=== PATIENT | female | born 1990 | race American Indian/Alaskan Native ===

== ENCOUNTER 2016-08-12 17:51 | Emergency (ER) | payer MEDICAID ==
[2016-08-12 17:57] VITALS: TEMP 99.2; O2SAT 100
[2016-08-12 17:59] VITALS: BMI 31.0
--- NOTE | 2016-08-12 18:10 | ED PDOC ---
Arrival/HPI - General Chief Complaint: Seizure Time Seen by Provider: 08/12/16 17:59 Historian: Patient, EMS - History of Present Illness Narrative History of Present Illness (Text): 08/12/16 17:59 A 26 year old female, whose past medical history includes seizures (on Dilantin) , is brought into the emergency department by EMS for seizure like activities. EMS reports 6 episodes. They states after every episodes the patient returned to baseline. When the patient was being transported into the hospital stretcher she had another episode, which lasted for 30 seconds and immediately after returned to baseline. Patient denies any urinary incontinence, tongue biting, or any other complaints at this time. Time/Duration: Prior to Arrival Symptom Onset: Sudden Symptom Course: Other Quality: Other Activities at Onset: Rest Context: Home Past Medical History - Provider Review Nursing Documentation Reviewed: Yes - Infectious Disease Hx of Infectious Diseases: None - Cardiac Hx Cardiac Disorders: No - Pulmonary Hx Respiratory Disorders: Yes Hx Asthma: Yes - Neurological Hx Neurological Disorder: Yes Hx Seizures: Yes - HEENT Hx HEENT Disorder: No - Renal Hx Renal Disorder: No - Endocrine/Metabolic Hx Endocrine Disorders: No - Hematological/Oncological Hx Blood Disorders: No - Integumentary Hx Dermatological Disorder: No - Musculoskeletal/Rheumatological Hx Musculoskeletal Disorders: No - Gastrointestinal Hx Gastrointestinal Disorders: No - Genitourinary/Gynecological Hx Genitourinary Disorders: No - Psychiatric Hx Psychophysiologic Disorder: No Hx Substance Use: No - Anesthesia Hx Anesthesia: No Family/Social History - Physician Review Nursing Documentation Reviewed: Yes Family/Social History: Unknown Family HX Smoking Status: Unknown If Ever Smoked Hx Alcohol Use: No Hx Substance Use: No Allergies/Home Meds Allergies/Adverse Reactions: Allergies banana Allergy (Verified 08/12/16 17:59) ANAPHYLAXIS eggplant Allergy (Uncoded 08/12/16 17:59) ANAPHYLAXIS Home Medications: Home Meds Medication Instructions Recorded Confirmed Albuterol HFA [Ventolin HFA 90 1 puff IH PRN PRN 08/12/16 08/12/16 mcg/actuation (8 g)] Physical Exam - Physical Exam Narrative Physical Exam (Text): - Review of Systems Constitutional: Normal. absent: Fatigue, Weight Change, Fevers Eyes: Normal ENT: Normal. absent: tongue biting. Respiratory: Normal absent: SOB, Cough, Sputum Cardiovascular: Normal absent: Chest pain, Palpitations, Syncope Gastrointestinal: Normal absent: Abdominal pain, Diarrhea, Nausea, Vomiting Genitourinary: Normal. absent: Dysuria, Frequency, Hematuria, incontinence Musculoskeletal: Normal. absent: Arthralgias, Back Pain, Neck Pain Skin: Normal Neurological: Seizure like activity. absent: Focal Weakness Endocrine: Normal Hemo/Lymphatic: Normal Psychiatric: Normal - Physical exam Patient appears age appropriate, speaking full sentences without difficulty - Systems Exam Head: Present: Atraumatic, Normocephalic Pupils: Present: PERRL Extraocular Muscles: Present: EOMI Conjunctiva: Present: Normal Mouth: Present: Moist Mucous Membranes Neck: Present: Normal Range of Motion. No: MIDLINE TENDERNESS, Paraspinal Tenderness Respiratory/Chest: Present: Clear to Auscultation, Good Air Exchange. No: Respiratory Distress, Accessory Muscle Use, Tachypneic Cardiovascular: Present: Regular Rate and Rhythm, Normal S1, S2, Peripheral Pulses Present. No: Murmurs Abdomen: Present: Normal Bowel Sounds, No: Tenderness, Peritoneal Signs, Rebound, Guarding, Distention Back: Present: Normal Inspection. No: Midline Tenderness, Paraspinal Tenderness Upper Extremity: Present: Normal Inspection. No: Cyanosis, Edema Lower Extremity: Present: Normal Inspection. No: Edema Neurological: Present: GCS=15, Speech Normal, cranial nerves II through XII fully intact with no cerebellar abnormality, neuro-sensory fully intact. No focal neurological deficits. Skin: Present: Warm, Dry, Normal Color. No: Rashes Lymphatic: Present: OX3, NI, NC Psychiatric: Present: Alert, Oriented x 3, Normal Insight, Normal Concentration Vital Signs Reviewed: Yes Vital Signs Temp Pulse Resp BP Pulse Ox 08/12/16 17:52 99.2 F 81 18 114/75 100 Temperature: Afebrile Blood Pressure: Normal Pulse: Regular Respiratory Rate: Normal Appearance: Positive for: Well-Appearing, Non-Toxic, Comfortable Pain Distress: None Mental Status: Positive for: Alert and Oriented X 3 Finger Stick Blood Glucose: 86 Medical Decision Making ED Course and Treatment: 08/12/16 17:59 Impression: A 26 year old female after seizure like activities. Patient returns to baseline immediately after. There are no neurological deficits. Patient is currently awake and alert. She is in no distress and on her cell phone. No urinary incontinence or tongue biting. Pt states she takes dilantin, but ran out Differential Diagnosis include but are not limited to: seizure vs pseudoseizure Plan: -- EKG -- Labs -- Urine Preg -- Ativan -- Reassess and disposition Progress Notes: EKG: Ordered, reviewed, and independently interpreted the EKG. Rate : 80 BPM Rhythm : NSR Interpretation : No ST-segment elevations, normal intervals. Interpreted by me. 08/12/16 19:45 dilantin level low dilantin ordered pt in no distress denies complaints no focal neurological deficits on reeval will be given dilantin Rx, and states she will f/u with outpatient neurologist pt states she feels comfortable being dc home Pt states she understands to return to the ER right away for new or worsening symptoms or for inability to f/u with PMD or specialist as instructed. Patient states that she fully agrees with and understands discharge instructions. States that she agrees with the plan and disposition. Verbalized and repeated discharge instructions and plan. I have given the patient opportunity to ask any additional questions. - Lab Interpretations Lab Results: 08/12/16 18:26 08/12/16 18:40 Lab Results 08/12/16 18:40: Sodium 142, Potassium 3.5 L, Chloride 107, Carbon Dioxide 27, Anion Gap 12, BUN 11, Creatinine 0.8, Est GFR ( Amer) > 60, Est GFR (Non- Af Amer) > 60, Random Glucose 83, Calcium 8.9, Total Bilirubin 0.4, AST 27, ALT 40, Alkaline Phosphatase 58, Total Protein 7.4, Albumin 4.0, Globulin 3.4, Albumin/Globulin Ratio 1.2 08/12/16 18:40: Phenytoin < 3 L 08/12/16 18:26: PT 11.4, INR 1.06, APTT 27.1 08/12/16 18:26: WBC 6.1, RBC 4.61, Hgb 14.1, Hct 41.1, MCV 89.2, MCH 30.6, MCHC 34.3, RDW 14.4, Plt Count 215, MPV 10.0, Gran % 50.9, Lymph % (Auto) 42.0 H, Kimble % (Auto) 5.8, Eos % (Auto) 1.0 L, Baso % (Auto) 0.3, Gran # 3.08, Lymph # 2.5, Kimble # 0.4, Eos # 0.1, Baso # 0.02 08/12/16 17:57: POC Glucose (mg/dL) 86 I have reviewed the lab results: Yes - Medication Orders Current Medication Orders: Phenytoin 500 mg/ Sodium (Chloride) 100 mls @ 120 mls/hr IVPB STAT STA Stop: 08/12/16 20:28 Phenytoin 500 mg/ Sodium (Chloride) 100 mls @ 120 mls/hr IVPB ONCE ONE Stop: 08/12/16 21:19 Discontinued Medications Acetaminophen (Tylenol 325mg Tab) 975 mg PO STAT STA Stop: 08/12/16 19:10 Last Admin: 08/12/16 19:13 Dose: 975 mg Lorazepam (Ativan) 2 mg IVP ONCE ONE Stop: 08/12/16 18:02 Last Admin: 08/12/16 18:01 Dose: 2 mg Potassium Chloride (K-Dur 20 Meq Er Tab) 20 meq PO STAT STA Stop: 08/12/16 19:20 Last Admin: 08/12/16 19:37 Dose: 20 meq - Scribe Statement The provider has reviewed the documentation as recorded by the Denia Ohara Provider Scribe Attestation: All medical record entries made by the Denia were at my direction and personally dictated by me. I have reviewed the chart and agree that the record accurately reflects my personal performance of the history, physical exam, medical decision making, and the department course for this patient. I have also personally directed, reviewed, and agree with the discharge instructions and disposition. Disposition/Present on Arrival - Present on Arrival Any Indicators Present on Arrival: No History of DVT/PE: No History of Uncontrolled Diabetes: No Urinary Catheter: No History of Decub. Ulcer: No History Surgical Site Infection Following: None - Disposition Have Diagnosis and Disposition been Completed?: Yes Diagnosis: Seizure Disposition: HOME/ ROUTINE Disposition Time: 19:47 Patient Plan: Discharge Condition: GOOD Discharge Instructions (ExitCare): Epilepsy (ED), Recurrent Seizures in Adults (ED) Additional Instructions: PLEASE RETURN TO THE EMERGENCY DEPARTMENT FOR NEW OR WORSENING SYMPTOMS. RETURN RIGHT AWAY IF YOU CANNOT FOLLOW UP WITH YOUR PRIMARY CARE DOCTOR, CLINIC, OR SPECIALIST IN 1-2 DAYS. Prescriptions: Phenytoin, Extended [Dilantin] 100 mg PO Q8H #30 Referrals: Jer Lane MD [Staff Provider] - Follow up with primary Jeffry Lane MD [Staff Provider] - Follow up with primary
[2016-08-12 18:41] LABS: BASO # 0.02 K/mm3 (0.0-2.0); BASO % 0.3 % (0.0-3.0); EOS # 0.1 (0.0-0.7); GRAN # 3.08 (1.4-6.5); GRAN % 50.9 % (50.0-68.0); HEMOGLOBIN 14.1 gm/dL (12.0-16.0); LYMPH # 2.5 (1.2-3.4); MEAN CELL VOLUME 89.2 fL (80.0-105.0); MEAN CORPUSCULAR HEMOGLOBIN 30.6 pg (25.0-35.0); MEAN CORPUSCULAR HGB CONC 34.3 g/dl (31.0-37.0); MONO # 0.4 (0.1-0.6); MONO % 5.8 % (1.0-6.0); PLATELET COUNT 215 10^3/uL (120.0-450.0); RBC 4.61 10^6/uL (3.5-6.1); RED CELL DISTRIBUTION WIDTH 14.4 % (11.5-14.5); WHITE BLOOD COUNT 6.1 10^3/ul (4.5-11.0)
[2016-08-12 18:49] LABS: INR 1.06 (0.93-1.08); PARTIAL THROMBOPLASTIN TIME 27.1 Seconds (23.7-30.8); PROTHROMBIN TIME 11.4 Seconds (9.9-11.8)
[2016-08-12 18:59] LABS: ALB/GLOB RATIO 1.2 (1.1-1.8); ALT/SGPT 40 U/L (7-56); AST/SGOT 27 U/L (15-39); BLOOD UREA NITROGEN 11 mg/dL (7-21); CALCIUM 8.9 mg/dL (8.4-10.5); GFR AFRICAN-AMERICAN > 60; GFR NON-AFRICAN AMERICAN > 60
[2016-08-12] MEDS ORDERED: Potassium Chloride 20 mEq ER Tab PO STA (19:19)
[2016-08-12] MEDS ORDERED: PHENYTOIN IV ONE (19:34)
[2016-08-12] MEDS ORDERED: SODIUM CHLORIDE 0.9% IV ONE (19:34)
[2016-08-12] MEDS ORDERED: Phenytoin 500 MG in Sodium Chloride 0.9% 100 ML IVPB STA (19:39)
[2016-08-12] MEDS ORDERED: Phenytoin 500 MG in Sodium Chloride 0.9% 100 ML IVPB ONE (20:30)
[2016-08-12 22:31] VITALS: BP 110/70; PULSE 75; RESP 20
--- NOTE | 2016-08-13 10:43 | CARD ---
APPROVED REPORT EKG Measurement Heart [id number] <Conclusion> Sinus rhythm [facility]
== END 2016-08-12 22:34 | disposition home or self-care (01) ==
LOC: ED 17:51 → MERGE 17:51 → ED 22:34
DX: R56.9 Unspecified convulsions (principal)
CPT/HCPCS: 80053; 80185; 82948; 85025; 85610; 85730; 93005; 96365; 96366; 96375; 99285; J1165; J2060

== ENCOUNTER 2016-09-09 12:12 | Emergency (ER) | payer MEDICAID ==
[2016-09-09 12:12] VITALS: BMI 31.0
[2016-09-09 12:16] VITALS: TEMP 98.6; O2SAT 99
--- NOTE | 2016-09-09 12:54 | ED PDOC ---
Arrival/HPI - General Chief Complaint: Abdominal Pain Time Seen by Provider: 09/09/16 12:28 Historian: Patient - History of Present Illness Narrative History of Present Illness (Text): 09/09/16 12:34 26 year old female patient, , presents to the emergency department with suprapubic abdominal pain. The patient states that her last known menstrual period was August 11, 2016. Patient notes that she took a test days ago and it was positive. The patient denies vaginal bleeding, dysuria, chills, fever, nausea, vomiting, diarrhea, or any other complaint. Time/Duration: Other (few days) Symptom Onset: Sudden Symptom Course: Unchanged Activities at Onset: Rest, Light Context: Home Past Medical History - Provider Review Nursing Documentation Reviewed: Yes - Infectious Disease Hx of Infectious Diseases: None - Cardiac Hx Cardiac Disorders: No - Pulmonary Hx Respiratory Disorders: Yes Hx Asthma: Yes - Neurological Hx Neurological Disorder: Yes Hx Seizures: Yes - HEENT Hx HEENT Disorder: No - Renal Hx Renal Disorder: No - Endocrine/Metabolic Hx Endocrine Disorders: No - Hematological/Oncological Hx Blood Disorders: No - Integumentary Hx Dermatological Disorder: No - Musculoskeletal/Rheumatological Hx Musculoskeletal Disorders: No - Gastrointestinal Hx Gastrointestinal Disorders: No - Genitourinary/Gynecological Hx Genitourinary Disorders: No - Psychiatric Hx Psychophysiologic Disorder: No Hx Substance Use: No - Anesthesia Hx Anesthesia: No Family/Social History - Physician Review Nursing Documentation Reviewed: Yes Family/Social History: No Known Family HX Smoking Status: Never Smoked Hx Alcohol Use: No Hx Substance Use: No Allergies/Home Meds Allergies/Adverse Reactions: Allergies banana Allergy (Verified 09/09/16 12:16) SWELLING eggplant Allergy (Uncoded 09/09/16 12:16) SWELLING Home Medications: Home Meds Medication Instructions Recorded Confirmed Albuterol Sulfate [Albuterol Hfa] 0.09 mg IH Q4H 11/01/14 09/09/16 Albuterol HFA [Ventolin HFA 90 1 puff IH PRN PRN 08/12/16 09/09/16 mcg/actuation (8 g)] Physical Exam - Physical Exam Narrative Physical Exam (Text): - Review of Systems Constitutional: Normal. absent: Fatigue, Weight Change, Fevers Eyes: Normal ENT: Normal Respiratory: Normal absent: SOB, Cough, Sputum Cardiovascular: Normal absent: Chest pain, Palpitations, Syncope Gastrointestinal: (+) suprapubic abdominal pain absent: Diarrhea, Nausea, Vomiting Genitourinary: Normal. absent: Dysuria, Frequency, Hematuria Musculoskeletal: Normal. absent: Arthralgias, Back Pain, Neck Pain Skin: Normal Neurological: Normal absent: Focal Weakness Endocrine: Normal Hemo/Lymphatic: Normal Psychiatric: Normal - Physical exam Patient appears age appropriate, speaking full sentences without difficulty - Systems Exam Head: Present: Atraumatic, Normocephalic Pupils: Present: PERRL Extraocular Muscles: Present: EOMI Conjunctiva: Present: Normal Mouth: Present: Moist Mucous Membranes Neck: Present: Normal Range of Motion. No: MIDLINE TENDERNESS, Paraspinal Tenderness Respiratory/Chest: Present: Clear to Auscultation, Good Air Exchange. No: Respiratory Distress, Accessory Muscle Use, Tachypnic Cardiovascular: Present: Regular Rate and Rhythm, Normal S1, S2, Peripheral Pulses Present. No: Murmurs Abdomen: Present: Abdomen soft, non-tender. No: Tenderness, Peritoneal Signs, Rebound, Guarding, Distention Genitourinary: Present: Normal inspection. No: Dysuria, Frequency, Hematuria Back: Present: Normal Inspection. No: Midline Tenderness, Paraspinal Tenderness Upper Extremity: Present: Normal Inspection. No: Cyanosis, Edema Lower Extremity: Present: Normal Inspection. No: Edema Neurological: Present: GCS=15, Speech Normal, cranial nerves II through XII fully intact with no cerebellar abnormality, neuro-sensory fully intact. No focal neurological deficits. Skin: Present: Warm, Dry, Normal Color. No: Rashes Lymphatic: Present: OX3, NI, NC Psychiatric: Present: Alert, Oriented x 3, Normal Insight, Normal Concentration Vital Signs Temp Pulse Resp BP Pulse Ox 09/09/16 15:05 79 18 107/69 99 09/09/16 12:13 98.6 F 82 16 105/68 99 Temperature: Afebrile Blood Pressure: Normal Pulse: Regular Respiratory Rate: Normal Medical Decision Making ED Course and Treatment: 09/09/16 12:40 Impression: A 26 year old female, , complaining of suprapubic abdominal pain/ Pt took a test, positive result. On exam, abdomen was soft, non-tender. Plan: -- Transvaginal US -- Urinalysis -- Urine Culture -- Labs -- Reassess and disposition Progress Notes: 09/09/16 15:24 POC preg negative b-hcg pos pt denies vaginal bleeding prelim US report shows no adnexal masses and empty uterus pt in no distress instructed to f/u in the ER or her OB for repeat beta and US pt states she understands and agrees with dc plan and dispo Pt states she understands to return to the ER right away for new or worsening symptoms or for inability to f/u with PMD or specialist as instructed. Patient states that she fully agrees with and understands discharge instructions. States that she agrees with the plan and disposition. Verbalized and repeated discharge instructions and plan. I have given the patient opportunity to ask any additional questions. - Lab Interpretations Lab Results: 09/09/16 12:55 09/09/16 12:55 Lab Results 09/09/16 12:55: Beta HCG, Quant 187.52 H 09/09/16 12:55: Sodium 138, Potassium 3.9, Chloride 105, Carbon Dioxide 24, Anion Gap 13, BUN 9, Creatinine 0.7, Est GFR ( Amer) > 60, Est GFR (Non- Af Amer) > 60, Random Glucose 82, Calcium 8.6, Total Bilirubin 0.6, AST 21, ALT 37, Alkaline Phosphatase 46, Total Protein 6.9, Albumin 3.6, Globulin 3.3, Albumin/Globulin Ratio 1.1 09/09/16 12:55: Urine Color Yellow, Urine Appearance Clear, Urine pH 7.0, Ur Specific Justice 1.020, Urine Protein Negative, Urine Glucose (UA) Negative, Urine Ketones Negative, Urine Blood Negative, Urine Nitrate Negative, Urine Bilirubin Negative, Urine Urobilinogen 0.2, Ur Leukocyte Esterase Negative, Urine HCG, Qual Positive 09/09/16 12:55: PT 11.3, INR 1.05, APTT 28.1 09/09/16 12:55: WBC 6.2, RBC 4.17, Hgb 12.5, Hct 36.3, MCV 87.1, MCH 30.0, MCHC 34.4, RDW 14.3, Plt Count 179, MPV 9.7, Gran % 51.1, Lymph % (Auto) 41.3 H, Isabela % (Auto) 6.6 H, Eos % (Auto) 0.8 L, Baso % (Auto) 0.2, Gran # 3.15, Lymph # 2.6, Isabela # 0.4, Eos # 0.1, Baso # 0.01 09/09/16 12:55: Blood Type A POSITIVE, Antibody Screen Negative, BBK History Checked No verified bt I have reviewed the lab results: Yes - RAD Interpretation Radiology Orders: 09/09/16 12:40 OB TRANSVAGINAL [US] Stat - Medication Orders Current Medication Orders: Discontinued Medications Ondansetron HCl (Zofran Odt) Confirm Administered Dose 4 mg .ROUTE .STK-MED ONE Stop: 09/09/16 14:34 Last Admin: 09/09/16 14:35 Dose: Ondansetron HCl (Zofran Odt) 4 mg PO STAT STA Stop: 09/09/16 14:36 Last Admin: 09/09/16 14:38 Dose: 4 mg - Scribe Statement The provider has reviewed the documentation as recorded by the Antibe Lisette Castaneda Provider Scribe Attestation: All medical record entries made by the Scribe were at my direction and personally dictated by me. I have reviewed the chart and agree that the record accurately reflects my personal performance of the history, physical exam, medical decision making, and the department course for this patient. I have also personally directed, reviewed, and agree with the discharge instructions and disposition. Disposition/Present on Arrival - Present on Arrival Any Indicators Present on Arrival: No History of DVT/PE: No History of Uncontrolled Diabetes: No Urinary Catheter: No History of Decub. Ulcer: No History Surgical Site Infection Following: None - Disposition Have Diagnosis and Disposition been Completed?: Yes Diagnosis: Abdominal pain Disposition: HOME/ ROUTINE Disposition Time: 15:29 Patient Plan: Discharge Patient Problems: Current Active Problems Problem Status Onset Abdominal pain Acute Condition: GOOD Discharge Instructions (ExitCare): Abdominal Pain in (ED) Additional Instructions: PLEASE RETURN TO THE EMERGENCY DEPARTMENT FOR NEW OR WORSENING SYMPTOMS. RETURN RIGHT AWAY IF YOU CANNOT FOLLOW UP WITH YOUR PRIMARY CARE DOCTOR, CLINIC, OR SPECIALIST IN 1-2 DAYS. PLEASE FOLLOW UP WITH OB SPECIALIST IN 1-2 DAYS FOR REPEAT BLOOD WORK AND ULTRASOUND Referrals: Horace Mayfield MD [Staff Provider] - Follow up with primary Forms: Sandata (Danish), WORK NOTE
[2016-09-09 13:05] LABS: ADD MANUAL DIFF? NO
[2016-09-09 13:17] LABS: BASO # 0.01 K/mm3 (0.0-2.0); BASO % 0.2 % (0.0-3.0); EOS # 0.1 (0.0-0.7); EOS % 0.8 % (1.5-5.0); GRAN # 3.15 (1.4-6.5); GRAN % 51.1 % (50.0-68.0); HEMATOCRIT 36.3 % (36.0-48.0); LYMPH # 2.6 (1.2-3.4); LYMPH % 41.3 % (22.0-35.0); MEAN CELL VOLUME 87.1 fL (80.0-105.0); MEAN CORPUSCULAR HGB CONC 34.4 g/dl (31.0-37.0); MEAN PLATELET VOLUME 9.7 fl (7.0-11.0); MONO # 0.4 (0.1-0.6); MONO % 6.6 % (1.0-6.0); PLATELET COUNT 179 10^3/uL (120.0-450.0); RED CELL DISTRIBUTION WIDTH 14.3 % (11.5-14.5); WHITE BLOOD COUNT 6.2 10^3/ul (4.5-11.0)
[2016-09-09 13:18] LABS: URINE BILIRUBIN NEGATIVE (NEGATIVE); URINE BLOOD NEGATIVE (NEGATIVE); URINE GLUCOSE (UA) NEGATIVE (NEGATIVE); URINE KETONE NEGATIVE (NEGATIVE); URINE LEUKOCYTE ESTERASE NEGATIVE Leu/uL (NEGATIVE); URINE PROTEIN NEGATIVE mg/dL (<30 mg/dL); URINE UROBILINOGEN 0.2 E.U./dL (<1 E.U./dL)
[2016-09-09 13:26] LABS: URINE APPEARANCE CLEAR (CLEAR); URINE COLOR YELLOW (YELLOW)
[2016-09-09 13:27] LABS: ALB/GLOB RATIO 1.1 (1.1-1.8); ALKALINE PHOSPHATASE 46 U/L (38-133); ALT/SGPT 37 U/L (7-56); AST/SGOT 21 U/L (15-39); BILIRUBIN,TOTAL 0.6 mg/dL (0.2-1.3); BLOOD UREA NITROGEN 9 mg/dL (7-21); CALCIUM 8.6 mg/dL (8.4-10.5); CARBON DIOXIDE 24 mmol/L (21-33); CHLORIDE 105 mmol/L (98-107); GFR AFRICAN-AMERICAN > 60; GLUCOSE,RANDOM 82 mg/dL (70-110); POTASSIUM 3.9 mmol/L (3.6-5.0); SODIUM 138 mmol/L (132-148); TOTAL PROTEIN 6.9 g/dL (5.8-8.3)
[2016-09-09 13:37] LABS: INR 1.05 (0.93-1.08); PARTIAL THROMBOPLASTIN TIME 28.1 Seconds (23.7-30.8)
[2016-09-09 15:05] VITALS: BP 107/69; PULSE 79; RESP 18
--- NOTE | 2016-09-09 15:46 | US ---
HISTORY: preg, abd pain COMPARISON: None available. TECHNIQUE: Transvaginal and transabdominal ultrasound was performed in evaluation of this patient with positive test with last menstrual period reported 08/21/2016. This suggests suggest a potential 4 week 1 day gestation. FINDINGS: UTERUS: Measures 10.7 x 4.8 x 7.0 cm. Normal in size and appearance. The uterus is anteverted without discrete myometrial mass grossly appreciable. ENDOMETRIUM: Measures 12.6 mm in diameter. Trilaminar an appearance appearing grossly nonfocal. No gestational sacs identified. CERVIX: No cervical abnormality identified. RIGHT OVARY: Measures 4.2 x 2.5 x 4.1 cm. No solid mass. Normal arterial spectral Doppler tracing. LEFT OVARY: Measures 2.9 x 1.7 x 3.1 cm. No solid mass. Normal arterial spectral Doppler tracing. FREE FLUID: No significant free fluid noted. OTHER FINDINGS: None. IMPRESSION: There is no direct ultrasound evidence of an intrauterine gestation nor is there evidence of ectopic disease at this time either. Bilateral adnexal compartments appear unremarkable transabdominally and transvaginally. Accordingly, consider early intrauterine gestation or potential gestational failure. Ectopic gestation is not completely excluded. Clinical correlation as well as well as 1 week ultrasound follow-up. Findings were discussed with Dr. Sanchez, 15:20 p.m..
== END 2016-09-09 15:45 | disposition home or self-care (01) ==
LOC: ED 12:12
DX: O26.891 Other specified pregnancy related conditions, first trimester (principal); R10.9 Unspecified abdominal pain; Z3A.00 Weeks of gestation of pregnancy not specified

== ENCOUNTER 2016-09-11 15:25 | Emergency (ER) | payer MEDICAID ==
[2016-09-11 15:26] VITALS: BMI 31.0
[2016-09-11 15:45] VITALS: TEMP 99.7; O2SAT 99
--- NOTE | 2016-09-11 16:36 | ED PDOC ---
Arrival/HPI - General Chief Complaint: Medical Clearance Time Seen by Provider: 09/11/16 15:54 Historian: Patient - History of Present Illness Narrative History of Present Illness (Text): 09/11/16 16:29 A 26 year old female, who denies any past medical history, presents to the emergency department for repeat beta hcg. Patient was seen in the emergency room 2 days ago complaining of suprapubic pain. Patient had blood work done which showed a beta hcg of 187. She was discharged home feeling better and instructed to come back for further evaluation. Patient denies any fever, chills , nausea, vomiting, diarrhea, abdominal pain, urinary symptoms, vaginal bleeding , vaginal discharge or any other complaints. Patients last last menstrual period was on 08/11. Ob-oysterman is from [facility] located in [facility] Past Medical History - Provider Review Nursing Documentation Reviewed: Yes - Infectious Disease Hx of Infectious Diseases: None - Cardiac Hx Cardiac Disorders: No - Pulmonary Hx Respiratory Disorders: Yes Hx Asthma: Yes - Neurological Hx Neurological Disorder: Yes Hx Seizures: Yes - HEENT Hx HEENT Disorder: No - Renal Hx Renal Disorder: No - Endocrine/Metabolic Hx Endocrine Disorders: No - Hematological/Oncological Hx Blood Disorders: No - Integumentary Hx Dermatological Disorder: No - Musculoskeletal/Rheumatological Hx Musculoskeletal Disorders: No - Gastrointestinal Hx Gastrointestinal Disorders: No - Genitourinary/Gynecological Hx Genitourinary Disorders: No - Psychiatric Hx Psychophysiologic Disorder: No Hx Substance Use: No - Anesthesia Hx Anesthesia: No Family/Social History - Physician Review Nursing Documentation Reviewed: Yes Family/Social History: No Known Family HX Smoking Status: Never Smoked Hx Alcohol Use: No Hx Substance Use: No Allergies/Home Meds Allergies/Adverse Reactions: Allergies banana Allergy (Verified 09/09/16 12:16) SWELLING eggplant Allergy (Uncoded 09/09/16 12:16) SWELLING Home Medications: Home Meds Medication Instructions Recorded Confirmed Albuterol Sulfate [Albuterol Hfa] 0.09 mg IH Q4H 11/01/14 09/11/16 Albuterol HFA [Ventolin HFA 90 1 puff IH PRN PRN 08/12/16 09/11/16 mcg/actuation (8 g)] Review of Systems - Physician Review All systems were reviewed & negative as marked: Yes - Review of Systems Constitutional: Normal. absent: Fevers, Night Sweats Gastrointestinal: absent: Abdominal Pain, Diarrhea, Nausea, Vomiting Genitourinary Female: absent: Dysuria, Frequency, Hematuria, Urine Output Changes, Vaginal Bleeding, Vaginal Discharge Physical Exam Vital Signs Reviewed: Yes Vital Signs Temp Pulse Resp BP Pulse Ox 09/11/16 17:20 67 18 104/65 99 09/11/16 16:41 74 18 102/61 99 09/11/16 15:45 99.7 F H 80 16 98/58 L 99 Temperature: Febrile Blood Pressure: Hypotensive Pulse: Regular Respiratory Rate: Normal Appearance: Positive for: Well-Appearing, Non-Toxic, Comfortable Pain Distress: None Mental Status: Positive for: Alert and Oriented X 3 - Systems Exam Head: Present: Atraumatic, Normocephalic Pupils: Present: PERRL Extroacular Muscles: Present: EOMI Conjunctiva: Present: Normal Mouth: Present: Moist Mucous Membranes Neck: Present: Normal Range of Motion Respiratory/Chest: Present: Clear to Auscultation, Good Air Exchange. No: Respiratory Distress, Accessory Muscle Use Cardiovascular: Present: Regular Rate and Rhythm, Normal S1, S2. No: Murmurs Abdomen: Present: Normal Bowel Sounds. No: Tenderness, Distention, Peritoneal Signs Back: Present: Normal Inspection Upper Extremity: Present: Normal Inspection. No: Cyanosis, Edema Lower Extremity: Present: Normal Inspection. No: Edema Neurological: Present: GCS=15, CN II-XII Intact, Speech Normal Skin: Present: Warm, Dry, Normal Color. No: Rashes Psychiatric: Present: Alert, Oriented x 3, Normal Insight, Normal Concentration Medical Decision Making ED Course and Treatment: 09/11/16 16:28 Impression: A 26 year old female presents for repeat beta hcg. Patient denies any pain or discomfort. Plan: -- Beta HCG -- Reassess and disposition Prior Visits: Notes and results from previous visits were reviewed. Patient last seen in the ED on 09/09/16 for abdominal pain. Progress Notes: 09/12/16 17:45 Beta HCG increased appropriately. Patient asymptomatic and confortable. She was explained the importance of followup and advised that she will need a repeat ultrasound in a week. She will f/u with her OBGYN. - Lab Interpretations Lab Results: Lab Results 09/11/16 16:19: Beta HCG, Quant 557.40 H I have reviewed the lab results: Yes - Scribe Statement The provider has reviewed the documentation as recorded by the Antibe Teetee Sanchez Provider Scribe Attestation: All medical record entries made by the Scribe were at my direction and personally dictated by me. I have reviewed the chart and agree that the record accurately reflects my personal performance of the history, physical exam, medical decision making, and the department course for this patient. I have also personally directed, reviewed, and agree with the discharge instructions and disposition. Disposition/Present on Arrival - Present on Arrival Any Indicators Present on Arrival: No History of DVT/PE: No History of Uncontrolled Diabetes: No Urinary Catheter: No History of Decub. Ulcer: No History Surgical Site Infection Following: None - Disposition Have Diagnosis and Disposition been Completed?: Yes Diagnosis: Threatened Disposition: HOME/ ROUTINE Disposition Time: 17:45 Patient Plan: Discharge Condition: IMPROVED Discharge Instructions (ExitCare): Threatened Miscarriage (ED) Additional Instructions: Nikolas, thank you for letting us take care of you today. Your provider was Dr. Muro. You were treated for Repeat BHCG, Threatened . The emergency medical care you received today was directed at your acute symptoms. If you were prescribed any medication, please fill it and take as directed. It may take several days for your symptoms to resolve. Return to the Emergency Department if your symptoms worsen, do not improve, or if you have any other problems. Please contact your doctor or call one of the physicians/clinics you have been referred to that are listed on the Patient Visit Information form that is included in your discharge packet. Bring any paperwork you were given at discharge with you along with any medications you are taking to your follow up visit. Our treatment cannot replace ongoing medical care by a primary care provider (PCP) outside of the emergency department. Thank you for allowing the [facility] team to be part of your care today. If you had an X-Ray or CT scan: A Radiologist will review the ED reading if any change in treatment is needed we will contact you. If you had a blood, urine, or wound culture: It will take several days for the results, if any change in treatment is needed we will contact you. If you had an STI test: It will take 48 hours for the results. Please call after 1 week if you have not heard back. Referrals: [facility], [Non-Staff] - Follow up with primary Forms: [employer] (Tajik)
[2016-09-11 16:41] VITALS: RESP 18
[2016-09-11 17:33] VITALS: BP 104/65; PULSE 67
== END 2016-09-11 17:45 | disposition home or self-care (01) ==
LOC: ED 15:25
DX: O20.0 Threatened abortion (principal)

== ENCOUNTER 2016-09-22 16:08 | Emergency (ER) | payer MEDICAID ==
[2016-09-22 17:08] VITALS: BMI 33.0
[2016-09-22 17:11] VITALS: BP 97/65; PULSE 91; RESP 18; TEMP 99; O2SAT 100
[2016-09-22] MEDS ORDERED: Sodium Chloride 0.9% 1,000 ML IV STA (17:25)
== END 2016-09-22 16:09 | disposition left against medical advice (07) ==
LOC: ED 16:08
DX: Z02.89 Encounter for other administrative examinations (principal); R10.9 Unspecified abdominal pain

== ENCOUNTER 2016-10-02 04:25 | Emergency (ER) | payer MEDICAID ==
[2016-10-02 04:26] VITALS: BMI 33.0
[2016-10-02 04:45] VITALS: BP 98/66; PULSE 64; RESP 16; TEMP 98.3; O2SAT 97
--- NOTE | 2016-10-02 04:48 | ED PDOC ---
Arrival/HPI - General Time Seen by Provider: 10/02/16 04:39 Historian: Patient - History of Present Illness Narrative History of Present Illness (Text): 10/02/16 04:48 Jeramy Connor is a 26 year old female, currently 2 months , whose past medical history includes seizures, who presents to the Emergency department brought in by EMS for 3 seizure episodes at home tonight. Patient states her last seizure was 2 weeks ago, reports [place] [facility] [place] and [place] home. Patient also reports she has been experiencing nausea and vomiting. Patient states she was recently switched from Dilantin to Keppra 500 mg BID on 09/26/2016. Patient denies any fever, chills, chest pain, shortness of breath, diarrhea, urinary symptoms, back pain, neck pain, headache, dizziness , or any other complaints. Time/Duration: Other (tonight) Symptom Onset: Gradual Symptom Course: Unchanged Activities at Onset: Rest, Light Context: Home Past Medical History - Provider Review Nursing Documentation Reviewed: Yes - Infectious Disease Hx of Infectious Diseases: None - Cardiac Hx Cardiac Disorders: No - Pulmonary Hx Respiratory Disorders: Yes Hx Asthma: Yes - Neurological Hx Neurological Disorder: Yes Hx Seizures: Yes - HEENT Hx HEENT Disorder: No - Renal Hx Renal Disorder: No - Endocrine/Metabolic Hx Endocrine Disorders: No - Hematological/Oncological Hx Blood Disorders: No - Integumentary Hx Dermatological Disorder: No - Musculoskeletal/Rheumatological Hx Musculoskeletal Disorders: No - Gastrointestinal Hx Gastrointestinal Disorders: No - Genitourinary/Gynecological Hx Genitourinary Disorders: No - Psychiatric Hx Psychophysiologic Disorder: No Hx Substance Use: No - Anesthesia Hx Anesthesia: No Family/Social History - Physician Review Nursing Documentation Reviewed: Yes Family/Social History: Unknown Family HX Smoking Status: Never Smoked Hx Alcohol Use: No Hx Substance Use: No Allergies/Home Meds Allergies/Adverse Reactions: Allergies banana Allergy (Verified 10/02/16 04:48) SWELLING eggplant Allergy (Uncoded 09/09/16 12:16) SWELLING Home Medications: Home Meds Medication Instructions Recorded Confirmed Albuterol HFA [Ventolin HFA 90 1 puff IH PRN PRN 08/12/16 10/02/16 mcg/actuation (8 g)] Levetiracetam [Keppra] 500 mg PO BID 10/02/16 10/02/16 Review of Systems - Physician Review All systems were reviewed & negative as marked: Yes - Review of Systems Constitutional: Normal. absent: Fevers Eyes: Normal ENT: Normal Respiratory: Normal. absent: SOB, Cough Cardiovascular: Normal. absent: Chest Pain Gastrointestinal: Nausea, Vomiting. absent: Abdominal Pain, Diarrhea Genitourinary Female: Normal. absent: Dysuria, Frequency, Hematuria, Urine Output Changes Musculoskeletal: Normal. absent: Back Pain, Neck Pain Skin: Normal. absent: Rash Neurological: Seizure. absent: Headache, Dizziness Endocrine: Normal Hemo/Lymphatic: Normal Psychiatric: Normal Physical Exam Vital Signs Reviewed: Yes Vital Signs Temp Pulse Resp BP Pulse Ox 10/02/16 04:40 98.3 F 64 16 98/66 L 97 Temperature: Afebrile Blood Pressure: Normal Pulse: Regular Respiratory Rate: Normal Appearance: Positive for: Well-Appearing, Non-Toxic, Comfortable Pain Distress: None Mental Status: Positive for: Alert and Oriented X 3 - Systems Exam Head: Present: Atraumatic, Normocephalic Pupils: Present: PERRL Extroacular Muscles: Present: EOMI Conjunctiva: Present: Normal Mouth: Present: Moist Mucous Membranes Neck: Present: Normal Range of Motion. No: Meningeal Signs, MIDLINE TENDERNESS , Paraspinal Tenderness Respiratory/Chest: Present: Clear to Auscultation, Good Air Exchange. No: Respiratory Distress, Accessory Muscle Use Cardiovascular: Present: Regular Rate and Rhythm, Normal S1, S2. No: Murmurs Abdomen: Present: Normal Bowel Sounds. No: Tenderness, Distention, Peritoneal Signs Back: Present: Normal Inspection. No: CVA Tenderness, Midline Tenderness, Paraspinal Tenderness Upper Extremity: Present: Normal Inspection. No: Cyanosis, Edema Lower Extremity: Present: Normal Inspection. No: Edema Neurological: Present: GCS=15, CN II-XII Intact, Speech Normal, Motor Func Grossly Intact, Normal Sensory Function, Normal Cerebellar Funct, Memory Normal Skin: Present: Warm, Dry, Normal Color. No: Rashes Psychiatric: Present: Alert, Oriented x 3, Normal Insight, Normal Concentration Medical Decision Making ED Course and Treatment: 10/02/16 04:48 Impression: 26 year old female brought in for seizures tonight. Also complaining of vomiting. Differential Diagnosis included but are not limited to: seizure disorder Plan: -- EKG -- Labs -- IV fluids -- Reglan -- Reassess and disposition Prior Visits: Notes and results from previous visits were reviewed. On 09/11/2016, pt was seen in the Emergency department for beta-HCG repeat. Pt was d/c home. Progress Notes: Reviewed EKG, NSR at [address] bpm[address]. No ST-segment elevations or depressions, no T-wave inversions. - Lab Interpretations Lab Results: 10/02/16 04:50 10/02/16 04:50 Lab Results 10/02/16 04:50: WBC 7.2, RBC 4.31, Hgb 13.2, Hct 37.3, MCV 86.5, MCH 30.6, MCHC 35.4, RDW 14.0, Plt Count 213, MPV 9.8 10/02/16 04:50: Sodium 137, Potassium 3.6, Chloride 105, Carbon Dioxide 20 L, Anion Gap 16, BUN 6 L, Creatinine 0.6, Est GFR ( Amer) > 60, Est GFR (Non -Af Amer) > 60, Random Glucose 77, Calcium 9.1, Total Bilirubin 1.3, AST 24, ALT 35, Alkaline Phosphatase 56, Total Protein 7.5, Albumin 4.0, Globulin 3.4, Albumin/Globulin Ratio 1.2 - EKG Interpretation Interpreted by ED Physician: Yes Type: 12 lead EKG - Medication Orders Current Medication Orders: Sodium Chloride (Sodium Chloride 0.9%) 1,000 mls @ 100 mls/hr IV .Q10H JOJO Last Admin: 10/02/16 05:09 Dose: 100 mls/hr Discontinued Medications Metoclopramide HCl (Reglan) 10 mg IVP ONCE ONE Stop: 10/02/16 04:52 Last Admin: 10/02/16 05:09 Dose: 10 mg - Scribe Statement The provider has reviewed the documentation as recorded by the Denia Barbour Provider Scribe Attestation: All medical record entries made by the Denia were at my direction and personally dictated by me. I have reviewed the chart and agree that the record accurately reflects my personal performance of the history, physical exam, medical decision making, and the department course for this patient. I have also personally directed, reviewed, and agree with the discharge instructions and disposition. Disposition/Present on Arrival - Present on Arrival Any Indicators Present on Arrival: No History of DVT/PE: No History of Uncontrolled Diabetes: No Urinary Catheter: No History of Decub. Ulcer: No History Surgical Site Infection Following: None - Disposition Have Diagnosis and Disposition been Completed?: Yes Diagnosis: Seizure disorder, Disposition: HOME/ ROUTINE Disposition Time: 06:28 Patient Plan: Discharge Condition: GOOD Discharge Instructions (ExitCare): Epilepsy (ED), (ED), Morning Sickness (ED), Acute Nausea and Vomiting (ED) Additional Instructions: take meds as prescribed for nausea/vomiting/continue Keppra meds/follow up with your doctor this week Prescriptions: Doxylamine/Pyridoxine HCl (B6) [Mahad Olivier 10-10 mg Tablet] 1 each PO BID PRN # 14 tablet. PRN Reason: Nausea/Vomiting
[2016-10-02] MEDS ORDERED: Sodium Chloride 0.9% 1,000 ML IV SCH (05:00)
[2016-10-02 05:13] LABS: HEMATOCRIT 37.3 % (36.0-48.0); MEAN CELL VOLUME 86.5 fl (80.0-105.0); MEAN CORPUSCULAR HEMOGLOBIN 30.6 pg (25.0-35.0); MEAN CORPUSCULAR HGB CONC 35.4 g/dl (31.0-37.0); MEAN PLATELET VOLUME 9.8 fl (7.0-11.0); WHITE BLOOD COUNT 7.2 10^3/ul (4.5-11.0)
[2016-10-02 05:30] LABS: ALB/GLOB RATIO 1.2 (1.1-1.8); ALKALINE PHOSPHATASE 56 U/L (38-133); ALT/SGPT 35 U/L (7-56); AST/SGOT 24 U/L (15-39); BILIRUBIN,TOTAL 1.3 mg/dL (0.2-1.3); BLOOD UREA NITROGEN 6 mg/dL (7-21); CALCIUM 9.1 mg/dL (8.4-10.5); CARBON DIOXIDE 20 mmol/L (21-33); CHLORIDE 105 mmol/L (95-110); GFR AFRICAN-AMERICAN > 60; GLUCOSE,RANDOM 77 mg/dL (70-110); POTASSIUM 3.6 mmol/L (3.6-5.0); SODIUM 137 mmol/L (132-148); TOTAL PROTEIN 7.5 g/dL (5.8-8.3)
--- NOTE | 2016-10-02 19:58 | CARD ---
APPROVED REPORT EKG Measurement Heart [id number] <Conclusion> Normal sinus rhythm with sinus arrhythmia Normal ECG
== END 2016-10-02 06:36 | disposition home or self-care (01) ==
LOC: ED 04:25
DX: O26.891 Other specified pregnancy related conditions, first trimester (principal); G40.909 Epilepsy, unspecified, not intractable, without status epilepticus; Z3A.00 Weeks of gestation of pregnancy not specified
CPT/HCPCS: 80053; 85027; 93005; 96374; 99285; J2765; J7040

== ENCOUNTER 2016-10-21 14:43 | Emergency (ER) | payer MEDICAID ==
[2016-10-21 14:52] VITALS: BMI 36.0
[2016-10-21 14:54] VITALS: TEMP 98.6; O2SAT 100
[2016-10-21] MEDS ORDERED: Sodium Chloride 0.9% 1,000 ML IV STA (15:14)
--- NOTE | 2016-10-21 15:21 | ED PDOC ---
Arrival/HPI - General Chief Complaint: Seizure Time Seen by Provider: 10/21/16 14:48 Historian: Patient - History of Present Illness Narrative History of Present Illness (Text): 10/21/16 15:17 26yr old female with hx of seizures who is 2 months presents today with seizure at home witnessed by family. Pt states she was feeling fine and the seizure came on out of nowhere. pt states she recently started taking keppra for seizures once she found out she was . pt states she hasnt seen a neurologist. pt states her dilantin was switched to keppra by her [employer]. pt states she was on Keppra during her last 2 pregnancies. pt denies cp or sob. denies abdominal pain. No n/v. denies any complaints currently. Time/Duration: Prior to Arrival Past Medical History - Provider Review Nursing Documentation Reviewed: Yes - Travel History Have you recently traveled outside [place] w/in the past 3 mons?: No - Infectious Disease Hx of Infectious Diseases: None - Cardiac Hx Cardiac Disorders: No - Pulmonary Hx Respiratory Disorders: Yes Hx Asthma: Yes - Neurological Hx Neurological Disorder: Yes Hx Seizures: Yes - HEENT Hx HEENT Disorder: No - Renal Hx Renal Disorder: No - Endocrine/Metabolic Hx Endocrine Disorders: No - Hematological/Oncological Hx Blood Disorders: No - Integumentary Hx Dermatological Disorder: No - Musculoskeletal/Rheumatological Hx Musculoskeletal Disorders: No - Gastrointestinal Hx Gastrointestinal Disorders: No - Genitourinary/Gynecological Hx Genitourinary Disorders: No - Psychiatric Hx Psychophysiologic Disorder: No Hx Substance Use: No - Anesthesia Hx Anesthesia: No Family/Social History - Physician Review Nursing Documentation Reviewed: Yes Family/Social History: Unknown Family HX Smoking Status: Never Smoked Hx Alcohol Use: No Hx Substance Use: No Allergies/Home Meds Allergies/Adverse Reactions: Allergies banana Allergy (Verified 10/02/16 04:48) SWELLING eggplant Allergy (Uncoded 09/09/16 12:16) SWELLING Home Medications: Home Meds Medication Instructions Recorded Confirmed Levetiracetam [Keppra] 500 mg PO BID 10/02/16 10/21/16 Review of Systems - Review of Systems Constitutional: absent: Fatigue, Fevers Respiratory: absent: SOB, Cough Cardiovascular: absent: Chest Pain, Palpitations Gastrointestinal: absent: Abdominal Pain, Nausea, Vomiting Genitourinary Female: absent: Dysuria Musculoskeletal: absent: Arthralgias, Back Pain, Neck Pain Skin: absent: Rash, Pruritis Neurological: absent: Headache, Dizziness Psychiatric: absent: Anxiety, Depression Physical Exam Vital Signs Reviewed: Yes Vital Signs Temp Pulse Resp BP Pulse Ox 10/21/16 17:55 66 18 106/61 100 10/21/16 16:12 68 18 104/58 L 100 10/21/16 14:54 98.6 F 71 16 102/52 L 100 Temperature: Afebrile Blood Pressure: Normal Pulse: Regular Respiratory Rate: Normal Appearance: Positive for: Well-Appearing, Non-Toxic, Comfortable Pain Distress: None Mental Status: Positive for: Alert and Oriented X 3 - Systems Exam Head: Present: Atraumatic Pupils: Present: PERRL Extroacular Muscles: Present: EOMI Conjunctiva: Present: Normal Mouth: Present: Moist Mucous Membranes, Normal Tounge, Normal Teeth Pharnyx: Present: Normal Nose (External): Present: Atraumatic Nose (Internal): Present: Normal Inspection Neck: Present: Normal Range of Motion Respiratory/Chest: Present: Clear to Auscultation Cardiovascular: Present: Regular Rate and Rhythm Abdomen: No: Tenderness Back: Present: Normal Inspection Upper Extremity: Present: Normal ROM Lower Extremity: Present: Normal ROM Neurological: Present: GCS=15, Speech Normal Skin: Present: Warm, Dry, Normal Color. No: Rashes Psychiatric: Present: Alert, Oriented x 3 Medical Decision Making ED Course and Treatment: 10/21/16 15:36 26yr old female presents today with s/p seizure. alert and oriented. states she takes her keppra, but "sometimes misses the second dose" ekg: NSR with sinus arrhythmia at 78b/m no st elevations. cbc wnl cmp wnl magnesium wnl beta hc UA: + ketones, + leukocytes case discussed with dr. Chirag lane. (neurologist international student counselor): he suggests give 500mg of keppra in ER and sent home on Lamictal 25mg po bid as he prefers it in over keppra. i discussed all results in depth with the patient; advised increasing fluids and taking medications as prescribed. stressed importance of taking seizure medication daily. advised immediate return if symptoms worsen,persist or if new symptoms develop. impression; seizure, UTI in Stop Keppra Start Lamictal 25mg twice daily for seizures increase fluids macrobid; 1 tablet twice daily x 10 days for urinary tract infection Follow up with the neurologist within the next 2 days Follow up with the [facility]ITROGLYCERIN NEUTRAL[facility]ER within the next 2 days Return immediately if symptoms worsen,persist or if new symptoms develop. - Lab Interpretations Lab Results: 10/21/16 15:50 10/21/16 15:50 Lab Results 10/21/16 18:07: Urine Color Yellow, Urine Appearance Sl cloudy, Urine pH 6.0, Ur Specific [place] >= 1.030, Urine Protein 30 H, Urine Glucose (UA) Negative, Urine Ketones 40 H, Urine Blood Negative, Urine Nitrate Negative, Urine Bilirubin Negative, Urine Urobilinogen 0.2, Ur Leukocyte Esterase Trace H, Urine RBC 0 - 2, Urine WBC 0 - 2, Ur Epithelial Cells Tntc, Urine Bacteria Few, Hyaline Casts 0 - 2 10/21/16 15:50: Beta HCG, Quant 99549.00 H 10/21/16 15:50: WBC 8.3, RBC 4.41, Hgb 13.6, Hct 38.3, MCV 86.8, MCH 30.8, MCHC 35.5, RDW 13.6, Plt Count 207, MPV 9.2, Gran % 61.3, Lymph % (Auto) 32.5, [place] % (Auto) 5.9, Eos % (Auto) 0.2 L, Baso % (Auto) 0.1, Gran # 5.06, Lymph # 2.7, [place] # 0.5, Eos # 0.0, Baso # 0.01 10/21/16 15:50: Sodium 140, Potassium 3.9, Chloride 106, Carbon Dioxide 21, Anion Gap 17, BUN 11, Creatinine 0.6, Est GFR ( Amer) > 60, Est GFR (Non- Af Amer) > 60, Random Glucose 65 L, Calcium 9.4, Magnesium 1.8, Total Bilirubin 0.7, AST 31, ALT 51, Alkaline Phosphatase 57, Total Protein 7.8, Albumin 4.3, Globulin 3.5, Albumin/Globulin Ratio 1.2 - Medication Orders Current Medication Orders: Discontinued Medications Sodium Chloride (Sodium Chloride 0.9%) 1,000 mls @ 999 mls/hr IV .Q1H1M STA Stop: 10/21/16 16:14 Last Admin: 10/21/16 15:38 Dose: 999 mls/hr Levetiracetam (Keppra) 500 mg PO STAT STA Stop: 10/21/16 15:45 Last Admin: 10/21/16 16:37 Dose: 500 mg Nitrofurantoin Macrocrystals (Macrobid) 100 mg PO STAT STA Stop: 10/21/16 18:38 Last Admin: 10/21/16 18:54 Dose: 100 mg Disposition/Present on Arrival - Present on Arrival Any Indicators Present on Arrival: No History of DVT/PE: No History of Uncontrolled Diabetes: No Urinary Catheter: No History of Decub. Ulcer: No History Surgical Site Infection Following: None - Disposition Have Diagnosis and Disposition been Completed?: Yes Diagnosis: Urinary tract infection, Seizure Disposition: HOME/ ROUTINE Disposition Time: 18:31 Patient Plan: Discharge Condition: GOOD Discharge Instructions (ExitCare): Epilepsy (ED), Urinary Tract Infection in (ED) Additional Instructions: Stop Keppra Start Lamictal 25mg twice daily for seizures increase fluids macrobid; 1 tablet twice daily x 10 days for urinary tract infection Follow up with the neurologist within the next 2 days Follow up with the [facility]ROGLYCERIN NEUTRALIZER within the next 2 days Return immediately if symptoms worsen,persist or if new symptoms develop. Prescriptions: lamoTRIgine [LaMICtal] 25 mg PO BID #20 tab Nitrofurantoin Macrocrystals [Macrobid] 100 mg PO BID #20 cap Referrals: Jer Lane MD [Staff Provider] - Follow up with primary Horace Mayfield MD [Staff Provider] - Follow up with primary Marek West DO [Staff Provider] - Follow up with primary Forms: [employer] ([place]), WORK NOTE
[2016-10-21 16:05] LABS: BASO # 0.01 K/mm3 (0.0-2.0); BASO % 0.1 % (0.0-3.0); EOS % 0.2 % (1.5-5.0); GRAN # 5.06 (1.4-6.5); GRAN % 61.3 % (50.0-68.0); HEMATOCRIT 38.3 % (36.0-48.0); LYMPH # 2.7 (1.2-3.4); LYMPH % 32.5 % (22.0-35.0); MEAN CELL VOLUME 86.8 fl (80.0-105.0); MEAN CORPUSCULAR HEMOGLOBIN 30.8 pg (25.0-35.0); MEAN CORPUSCULAR HGB CONC 35.5 g/dl (31.0-37.0); MEAN PLATELET VOLUME 9.2 fl (7.0-11.0); MONO # 0.5 (0.1-0.6); MONO % 5.9 % (1.0-6.0); RED CELL DISTRIBUTION WIDTH 13.6 % (11.5-14.5); WHITE BLOOD COUNT 8.3 10^3/ul (4.5-11.0)
[2016-10-21 16:13] VITALS: RESP 18
[2016-10-21 16:13] LABS: ALB/GLOB RATIO 1.2 (1.1-1.8); ALKALINE PHOSPHATASE 57 U/L (38-126); ALT/SGPT 51 U/L (7-56); AST/SGOT 31 U/L (14-36); BILIRUBIN,TOTAL 0.7 mg/dL (0.2-1.3); BLOOD UREA NITROGEN 11 mg/dL (7-21); CALCIUM 9.4 mg/dL (8.4-10.5); CARBON DIOXIDE 21 mmol/L (21-33); CHLORIDE 106 mmol/L (98-107); GFR AFRICAN-AMERICAN > 60; GLUCOSE,RANDOM 65 mg/dL (70-110); MAGNESIUM 1.8 mg/dL (1.7-2.2); POTASSIUM 3.9 mmol/L (3.6-5.0); SODIUM 140 mmol/L (132-148); TOTAL PROTEIN 7.8 g/dL (5.8-8.3)
[2016-10-21 17:55] VITALS: BP 106/61; PULSE 66
[2016-10-21 18:17] LABS: URINE BILIRUBIN NEGATIVE (NEGATIVE); URINE BLOOD NEGATIVE (NEGATIVE); URINE GLUCOSE (UA) NEGATIVE (NEGATIVE); URINE KETONE 40 mg/dL (NEGATIVE); URINE LEUKOCYTE ESTERASE TRACE Leu/uL (NEGATIVE); URINE PROTEIN 30 mg/dL (<30 mg/dL); URINE UROBILINOGEN 0.2 E.U./dL (<1 E.U./dL)
[2016-10-21 18:18] LABS: URINE COLOR YELLOW (YELLOW)
[2016-10-21 18:19] LABS: URINE APPEARANCE SL CLOUDY (CLEAR)
[2016-10-21 18:31] LABS: URINE BACTERIA FEW (NEG); URINE EPITHELIAL CELLS TNTC /hpf (0-5); URINE RBC 0 - 2 /hpf (0-2); URINE WBC 0 - 2 /hpf (0-6)
--- NOTE | 2016-10-22 10:13 | CARD ---
APPROVED REPORT EKG Measurement Heart [id number] [place] [id number] <Conclusion> Normal sinus rhythm with sinus arrhythmia Normal ECG
== END 2016-10-21 19:06 | disposition home or self-care (01) ==
LOC: ED 14:43
DX: O23.40 Unspecified infection of urinary tract in pregnancy, unspecified trimester (principal); R56.9 Unspecified convulsions; Z3A.00 Weeks of gestation of pregnancy not specified
CPT/HCPCS: 80053; 81001; 83735; 84702; 85025; 87086; 93005; 96360; 99285; J7040

== ENCOUNTER 2016-11-19 12:10 | Emergency (ER) | payer MEDICAID ==
[2016-11-19 12:36] VITALS: BP 125/63; PULSE 88; RESP 18; TEMP 98.4; O2SAT 98
[2016-11-19 12:38] VITALS: BMI 34.4
[2016-11-19] MEDS ORDERED: Sodium Chloride 0.9% 1,000 ML IV STA (12:58)
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
[2016-11-19 13:25] LABS: ALB/GLOB RATIO 1.1 (1.1-1.8); ALKALINE PHOSPHATASE 48 U/L (38-126); ALT/SGPT 31 U/L (7-56); AST/SGOT 30 U/L (14-36); BASO # 0.02 K/mm3 (0.0-2.0); BASO % 0.3 % (0.0-3.0); BILIRUBIN,TOTAL 0.4 mg/dL (0.2-1.3); BLOOD UREA NITROGEN 10 mg/dL (7-21); CALCIUM 8.8 mg/dL (8.4-10.5); CARBON DIOXIDE 23 mmol/L (21-33); CHLORIDE 106 mmol/L (98-107); EOS # 0.1 (0.0-0.7); EOS % 0.6 % (1.5-5.0); GFR AFRICAN-AMERICAN > 60; GLUCOSE,RANDOM 86 mg/dL (70-110); GRAN # 5.1 (1.4-6.5); GRAN % 64.8 % (50.0-68.0); HEMATOCRIT 34.9 % (36.0-48.0); LYMPH # 2.2 (1.2-3.4); LYMPH % 28.2 % (22.0-35.0); MEAN CELL VOLUME 87.3 fl (80.0-105.0); MEAN CORPUSCULAR HEMOGLOBIN 30.5 pg (25.0-35.0); MEAN PLATELET VOLUME 10.2 fl (7.0-11.0); MONO # 0.5 (0.1-0.6); MONO % 6.1 % (1.0-6.0); POTASSIUM 3.9 mmol/L (3.6-5.0); RED CELL DISTRIBUTION WIDTH 14.2 % (11.5-14.5); SODIUM 137 mmol/L (132-148); TOTAL PROTEIN 7.1 g/dL (5.8-8.3); WHITE BLOOD COUNT 7.9 10^3/ul (4.5-11.0)
[2016-11-19 13:29] LABS: PH,URINE 6.5 (4.7-8.0); URINE BILIRUBIN NEGATIVE (NEGATIVE); URINE BLOOD NEGATIVE (NEGATIVE); URINE GLUCOSE (UA) NEGATIVE (NEGATIVE); URINE KETONE NEGATIVE (NEGATIVE); URINE LEUKOCYTE ESTERASE NEGATIVE Leu/uL (NEGATIVE); URINE PROTEIN TRACE mg/dL (<30 mg/dL); URINE UROBILINOGEN 0.2 E.U./dL (<1 E.U./dL)
[2016-11-19 13:30] LABS: URINE APPEARANCE SL CLOUDY (CLEAR); URINE COLOR YELLOW (YELLOW)
[2016-11-19 13:38] LABS: URINE RBC NEGATIVE /hpf (0-2)
[2016-11-19 13:39] LABS: URINE BACTERIA MOD (NEG)
--- NOTE | 2016-11-19 14:09 | US ---
PROCEDURE: OB Pelvic Ultrasound (transabdominal). HISTORY: 10 weeks , cramp pain COMPARISON: Prior transvaginal obstetric ultrasound exam 09/09/2016. FINDINGS: UTERUS: A single viable intrauterine gestation is identified and cephalic lie with average ultrasonic age of 14 weeks 6 days by standard biometry which agrees with LMP derived dates of 14 weeks 2 days. As well as prior transvaginal ultrasound exam 09/09/2016. The posterior placenta is appreciate which appears to overlap just past the internal cervical os indicative of previa. No placental abruption identified. cardiac activity is recorded 142 beats per minute internal and external cervical os is were closed with the cervix measuring 4.4 cm. No definite myometrial pathology appreciated. The following mean measurements were obtained: BPD 2.8 cm corresponds to 15 weeks 0 days. Head circumference 10.6 cm corresponds to 15 weeks 0 days. Abdominal circumference 8.3 cm corresponds to 14 weeks 5 days. Femur length 1.6 cm cm corresponds to 14 weeks 5 days. HC/AC ratio 1.27 which falls within the normal range. Estimated date of delivery 05/14/2017. anatomical survey is somewhat limited due to lie. The spine is somewhat limited as result the lie. No gross cranial findings. Indirect 3 vessel umbilical cord is identified within normal abdominal umbilical cord insertion identified. Urinary bladder is not clearly identified as well as the bilateral kidneys. Four-chamber heart view is not captured there is the urinary bladder. CERVIX: Four 4 cm in length with mild placenta previa identified. Please see discussion above. RIGHT OVARY: Not identified. LEFT OVARY: Not identified. FREE FLUID: None. OTHER FINDINGS: None. IMPRESSION: A single viable intrauterine gestation identified in cephalic lie with a posterior fundal placenta and average ultrasonic age of 14 weeks 6 days. Placenta previa is suggested. Clinically correlate further. No placental abruption identified. Limited anatomical survey as discussed above.
== END 2016-11-19 15:15 | disposition home or self-care (01) ==
LOC: ED 12:10
DX: O44.01 Complete placenta previa NOS or without hemorrhage, first trimester (principal); Z3A.14 14 weeks gestation of pregnancy; R10.2 Pelvic and perineal pain; R51 Headache; Y08.89XA Assault by other specified means, initial encounter; Y93.89 Activity, other specified; Y92.89 Other specified places as the place of occurrence of the external cause
CPT/HCPCS: 76815; 80053; 81001; 84702; 85025; 85027; 96360; 99283; J7040

== ENCOUNTER 2016-11-26 03:15 | Emergency (ER) | payer MEDICAID ==
[2016-11-26 03:16] VITALS: BMI 34.4
[2016-11-26 03:35] VITALS: TEMP 98.1
[2016-11-26 03:43] VITALS: RESP 18
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
[2016-11-26 04:35] LABS: BASO # 0.02 K/mm3 (0.0-2.0); BASO % 0.3 % (0.0-3.0); EOS # 0.1 (0.0-0.7); EOS % 0.9 % (1.5-5.0); GRAN # 4.57 (1.4-6.5); GRAN % 59.8 % (50.0-68.0); HEMATOCRIT 33.3 % (36.0-48.0); LYMPH # 2.5 (1.2-3.4); LYMPH % 33.2 % (22.0-35.0); MEAN CELL VOLUME 88.1 fl (80.0-105.0); MEAN CORPUSCULAR HEMOGLOBIN 30.7 pg (25.0-35.0); MEAN CORPUSCULAR HGB CONC 34.8 g/dl (31.0-37.0); MEAN PLATELET VOLUME 9.6 fl (7.0-11.0); MONO # 0.4 (0.1-0.6); MONO % 5.8 % (1.0-6.0); RED CELL DISTRIBUTION WIDTH 14.1 % (11.5-14.5); WHITE BLOOD COUNT 7.6 10^3/ul (4.5-11.0)
[2016-11-26 04:46] LABS: INR 0.98 (0.93-1.08)
[2016-11-26 04:48] LABS: ALB/GLOB RATIO 1.2 (1.1-1.8); ALKALINE PHOSPHATASE 43 U/L (38-126); ALT/SGPT 22 U/L (7-56); AST/SGOT 21 U/L (14-36); BILIRUBIN,TOTAL 0.5 mg/dL (0.2-1.3); BLOOD UREA NITROGEN 11 mg/dL (7-21); CALCIUM 8.8 mg/dL (8.4-10.5); CARBON DIOXIDE 21 mmol/L (21-33); CHLORIDE 107 mmol/L (98-107); GFR AFRICAN-AMERICAN > 60; GLUCOSE,RANDOM 83 mg/dL (70-110); POTASSIUM 3.6 mmol/L (3.6-5.0); SODIUM 137 mmol/L (132-148); TOTAL PROTEIN 6.7 g/dL (5.8-8.3)
[2016-11-26 04:57] LABS: URINE BILIRUBIN NEGATIVE (NEGATIVE); URINE BLOOD NEGATIVE (NEGATIVE); URINE GLUCOSE (UA) NEGATIVE (NEGATIVE); URINE KETONE NEGATIVE (NEGATIVE); URINE LEUKOCYTE ESTERASE NEGATIVE Leu/uL (NEGATIVE); URINE PROTEIN NEGATIVE mg/dL (<30 mg/dL); URINE UROBILINOGEN 0.2 E.U./dL (<1 E.U./dL)
[2016-11-26 05:10] LABS: URINE COLOR YELLOW (YELLOW)
[2016-11-26 05:11] LABS: URINE APPEARANCE SL CLOUDY (CLEAR)
--- NOTE | 2016-11-26 06:11 | US ---
EXAM: US After First Trimester, Transabdominal CLINICAL HISTORY: 26 years old, female; Pain; Other: Pelvic pain; Gestational age or lmp: 08/11/2016; ; Additional info: Abd pain and TECHNIQUE: Real-time transabdominal obstetrical ultrasound of the maternal pelvis and a second or third trimester with image documentation. COMPARISON: US - AGE 2016-11-19 13:19 FINDINGS: Fetus: A single intrauterine gestation is identified Heart rate: cardiac activity is identified a rate of 145 beats per minute. Presentation: Variable Placenta: Posterior Amniotic fluid: Unremarkable. Anatomy: A. dedicated anatomy scan was not performed, secondary to emergent nature of the examination. However, limited anatomy scan demonstrates: The CORD inserting on the midline. Limited views of the cervical, thoracic and lumbar spine demonstrate them to be completely covered. No discrete hydronephrosis is demonstrated. BIOMETRICS Gestational age by US: EFW: 143.31 g, +/ -21.5 g BPD: 33 mm, corresponding to approximate gestational age of 16 weeks, 1 day HC: 12.3 cm, corresponding to approximate gestational age of 16 weeks, 1 day AC: 10.6 cm, corresponding to approximate gestational age of 16 weeks, 4 days FL: 19 mm, corresponding to approximate gestational age of 15 weeks, 3 days MATERNAL: Uterus: No myometrial mass. Cervix: 3.6 cm, and is closed. Free fluid: No free fluid within the cul-de-sac. IMPRESSION: Single intrauterine gestation in a variable presentation with the placenta posterior. cardiac activity is identified. Approximate gestational age is 16 weeks and 1 day. The cervix is closed. Short-term followup with a dedicated anatomy scan (at approximately 20 weeks gestation) is recommended for further evaluation.
[2016-11-26 06:26] VITALS: BP 118/76; PULSE 86; O2SAT 100
== END 2016-11-26 06:30 | disposition home or self-care (01) ==
LOC: ED 03:15
DX: O20.0 Threatened abortion (principal)

== ENCOUNTER 2016-11-29 14:02 | Emergency (ER) | payer MEDICAID ==
[2016-11-29 14:02] VITALS: BMI 34.4
== END 2016-11-29 14:50 | disposition left against medical advice (07) ==
LOC: ED 14:02
DX: Z02.89 Encounter for other administrative examinations (principal); M54.9 Dorsalgia, unspecified

== ENCOUNTER 2017-07-14 20:05 | Emergency (ER) | payer MEDICAID ==
[2017-07-14 20:07] VITALS: BMI 34.4
[2017-07-14 20:16] VITALS: BP 119/82; PULSE 89; RESP 17; TEMP 98.8
[2017-07-14 21:22] LABS: BASO # 0.02 K/mm3 (0.0-2.0); BASO % 0.3 % (0.0-3.0); EOS # 0.1 (0.0-0.7); EOS % 1.4 % (1.5-5.0); GRAN # 2.94 (1.4-6.5); GRAN % 46.8 % (50.0-68.0); LYMPH # 2.9 (1.2-3.4); LYMPH % 45.2 % (22.0-35.0); MEAN CELL VOLUME 85.7 fl (80.0-105.0); MEAN CORPUSCULAR HEMOGLOBIN 29.1 pg (25.0-35.0); MEAN CORPUSCULAR HGB CONC 33.9 g/dl (31.0-37.0); MEAN PLATELET VOLUME 9.8 fl (7.0-11.0); MONO # 0.4 (0.1-0.6); MONO % 6.3 % (1.0-6.0); RBC 4.13 10^6/uL (3.5-6.1); RED CELL DISTRIBUTION WIDTH 16.7 % (11.5-14.5); WHITE BLOOD COUNT 6.3 10^3/ul (4.5-11.0)
[2017-07-14 21:26] LABS: URINE BILIRUBIN NEGATIVE (NEGATIVE); URINE BLOOD LARGE (NEGATIVE); URINE GLUCOSE (UA) NEGATIVE (NEGATIVE); URINE LEUKOCYTE ESTERASE NEGATIVE Leu/uL (NEGATIVE); URINE PROTEIN 30 mg/dL (<30 mg/dL); URINE UROBILINOGEN 0.2 E.U./dL (<1 E.U./dL)
[2017-07-14 21:34] LABS: ALB/GLOB RATIO 1.1 (1.1-1.8); ALBUMIN 3.7 g/dL (3.0-4.8); ALT/SGPT 32 U/L (7-56); AST/SGOT 23 U/L (14-36); BLOOD UREA NITROGEN 16 mg/dL (7-21); CALCIUM 8.8 mg/dL (8.4-10.5); GFR AFRICAN-AMERICAN > 60; GFR NON-AFRICAN AMERICAN > 60
--- NOTE | 2017-07-14 21:35 | ED PDOC ---
Arrival/HPI - General Chief Complaint: Abdominal Pain Time Seen by Provider: 07/14/17 20:24 Historian: Patient - History of Present Illness Narrative History of Present Illness (Text): 07/14/17 21:31 27 year old female presents to the Emergency department complaining of right lower quadrant pain for 3 days and vaginal spotting since May. Patient also reports taking a home test today that was read as positive. Patient denies any fever, chills, chest pain, shortness of breath, nausea, vomiting, diarrhea, back pain, neck pain, headache, dizziness, or any other complaints. Time/Duration: < week (3 days ago) Symptom Onset: Gradual Symptom Course: Unchanged Context: Home Past Medical History - Provider Review Nursing Documentation Reviewed: Yes - Infectious Disease Hx of Infectious Diseases: None - Cardiac Hx Cardiac Disorders: No - Pulmonary Hx Respiratory Disorders: Yes Hx Asthma: Yes - Neurological Hx Neurological Disorder: Yes Hx Seizures: Yes - HEENT Hx HEENT Disorder: No - Renal Hx Renal Disorder: No - Endocrine/Metabolic Hx Endocrine Disorders: No - Hematological/Oncological Hx Blood Disorders: No - Integumentary Hx Dermatological Disorder: No - Musculoskeletal/Rheumatological Hx Musculoskeletal Disorders: No - Gastrointestinal Hx Gastrointestinal Disorders: No - Genitourinary/Gynecological Hx Genitourinary Disorders: No - Psychiatric Hx Psychophysiologic Disorder: No Hx Substance Use: No - Anesthesia Hx Anesthesia: No Hx Anesthesia Reactions: No Hx Malignant Hyperthermia: No Family/Social History - Physician Review Nursing Documentation Reviewed: Yes Family/Social History: Unknown Family HX Smoking Status: Light Smoker < 10 Cigarettes Daily Hx Alcohol Use: No Hx Substance Use: No Allergies/Home Meds Allergies/Adverse Reactions: Allergies banana Allergy (Verified 11/26/16 03:28) SWELLING eggplant Allergy (Uncoded 11/26/16 03:28) SWELLING Home Medications: Home Meds Medication Instructions Recorded Confirmed lamoTRIgine [LaMICtal] 200 mg PO BID 11/26/16 07/14/17 Review of Systems - Physician Review All systems were reviewed & negative as marked: Yes - Review of Systems Constitutional: absent: Fevers, Night Sweats Respiratory: absent: SOB Cardiovascular: absent: Chest Pain Gastrointestinal: Abdominal Pain. absent: Diarrhea, Nausea, Vomiting Genitourinary Female: Vaginal Bleeding (spotting) Musculoskeletal: absent: Back Pain, Neck Pain Neurological: absent: Headache, Dizziness Physical Exam Vital Signs Reviewed: Yes Vital Signs Temp Pulse Resp BP Pulse Ox 07/14/17 22:36 99 07/14/17 20:10 98.8 F 89 17 119/82 100 Temperature: Afebrile Blood Pressure: Normal Pulse: Regular Respiratory Rate: Normal Appearance: Positive for: Well-Appearing, Non-Toxic, Comfortable Pain Distress: None Mental Status: Positive for: Alert and Oriented X 3 - Systems Exam Head: Present: Atraumatic, Normocephalic Pupils: Present: PERRL Extroacular Muscles: Present: EOMI Conjunctiva: Present: Normal Mouth: Present: Moist Mucous Membranes Neck: Present: Normal Range of Motion Respiratory/Chest: Present: Clear to Auscultation, Good Air Exchange. No: Respiratory Distress, Accessory Muscle Use Cardiovascular: Present: Regular Rate and Rhythm, Normal S1, S2. No: Murmurs Abdomen: No: Tenderness, Distention, Peritoneal Signs Back: Present: Normal Inspection Upper Extremity: Present: Normal Inspection. No: Cyanosis, Edema Lower Extremity: Present: Normal Inspection. No: Edema Neurological: Present: GCS=15, CN II-XII Intact, Speech Normal Skin: Present: Warm, Dry, Normal Color. No: Rashes Psychiatric: Present: Alert, Oriented x 3, Normal Insight, Normal Concentration Medical Decision Making ED Course and Treatment: 07/14/17 21:36 Impression: 27 year old female presents to the Emergency department complaining of abdominal pain and vaginal spotting. Plan: -- Transvaginal US -- Urinalysis -- Labs -- Reassess and disposition Prior Visits: Notes and results from previous visits were reviewed. Patient was last seen in the emergency department on 11/26/16, was diagnosed with threatened miscarriage , and was discharged home. Progress Notes: 07/14/17 22:22 Leaving Against Medical Advice (AMA): The patient refuses to wait for ultrasound results and is choosing to leave against medical advice. I have personally explained to the patient that choosing to do so may result in permanent bodily harm or . I have discussed at great length that without further evaluation and monitoring there may be unforeseen circumstances and/or deterioration causing permanent bodily harm or as a result of their choice. The patient is alert, oriented, and shows the mental capacity to make clear decisions regarding the patients health care at this time. The patient continues to wish to leave against medical advice. In light of the patients decision to leave against medical advice, follow-up has been arranged and the patient is aware of the importance to following up as instructed. The patient has been advised that they should return to the emergency room immediately if they change their mind at any time, or if their condition begins to change or worsen in any way. - Lab Interpretations Lab Results: 07/14/17 21:16 07/14/17 21:16 Lab Results 07/14/17 21:16: Urine Color Yellow, Urine Appearance Sl cloudy, Urine pH 6.0, Ur Specific [place] 1.025, Urine Protein 30 H, Urine Glucose (UA) Negative, Urine Ketones Trace H, Urine Blood Large H, Urine Nitrate Negative, Urine Bilirubin Negative, Urine Urobilinogen 0.2, Ur Leukocyte Esterase Negative, Urine RBC 2 - 5, Urine WBC 0 - 2, Ur Epithelial Cells 0 - 2, Urine Bacteria Mod 07/14/17 21:16: Beta HCG, Quant < 2.39 07/14/17 21:16: Sodium 145, Potassium 4.0, Chloride 110 H, Carbon Dioxide 23, Anion Gap 16, BUN 16, Creatinine 0.7, Est GFR ( Amer) > 60, Est GFR (Non- Af Amer) > 60, Random Glucose 83, Calcium 8.8, Total Bilirubin 0.2, AST 23, ALT 32, Alkaline Phosphatase 54, Total Protein 7.0, Albumin 3.7, Globulin 3.3, Albumin/Globulin Ratio 1.1 07/14/17 21:16: WBC 6.3, RBC 4.13, Hgb 12.0, Hct 35.4 L, MCV 85.7, MCH 29.1, MCHC 33.9, RDW 16.7 H, Plt Count 251, MPV 9.8, Gran % 46.8 L, Lymph % (Auto) 45.2 H, Elk % (Auto) 6.3 H, Eos % (Auto) 1.4 L, Baso % (Auto) 0.3, Gran # 2.94 , Lymph # (Auto) 2.9, Elk # (Auto) 0.4, Eos # (Auto) 0.1, Baso # (Auto) 0.02 - RAD Interpretation Radiology Orders: 07/14/17 20:30 OB TRANSVAGINAL [US] Stat - Scribe Statement The provider has reviewed the documentation as recorded by the Denia Joy Provider Scribe Attestation: All medical record entries made by the Denia were at my direction and personally dictated by me. I have reviewed the chart and agree that the record accurately reflects my personal performance of the history, physical exam, medical decision making, and the department course for this patient. I have also personally directed, reviewed, and agree with the discharge instructions and disposition. Disposition/Present on Arrival - Present on Arrival Any Indicators Present on Arrival: No History of DVT/PE: No History of Uncontrolled Diabetes: No Urinary Catheter: No History of Decub. Ulcer: No History Surgical Site Infection Following: None - Disposition Have Diagnosis and Disposition been Completed?: Yes Diagnosis: Abdominal pain Disposition: AGAINST MEDICAL ADVICE Disposition Time: 22:20 Condition: UNKNOWN Referrals: Meghan Almonte MD [Primary Care Provider] - Follow up with primary Forms: [employer] (Lithuanian)
[2017-07-14 21:40] LABS: URINE APPEARANCE SL CLOUDY (CLEAR); URINE COLOR YELLOW (YELLOW)
[2017-07-14 22:02] LABS: URINE BACTERIA MOD (NEG); URINE EPITHELIAL CELLS 0 - 2 /hpf (0-5); URINE WBC 0 - 2 /hpf (0-6)
[2017-07-14 22:39] VITALS: O2SAT 99
--- NOTE | 2017-07-14 22:50 | US ---
EXAM: US First Trimester, Transabdominal US , Transvaginal CLINICAL HISTORY: 27 years old, female; Pain; complicated by abdominal or pelvic pain; Lower; First trimester; Gestational age or lmp: 06/05/2017; Additional info: Abd pain TECHNIQUE: Real-time transabdominal and transvaginal obstetrical ultrasound of the maternal pelvis and a first trimester with image documentation. Transvaginal imaging was used for better evaluation of the fetus and adnexa. COMPARISON: No relevant prior studies available. FINDINGS: Gestation: No intrauterine gestational sac. Uterus/cervix: Endometrium: 0.9 cm in thickness. Closed cervix. Ovaries: RIGHT ovary: 3.4 x 2.3 x 3.3 cm anechoic lesion. LEFT ovary: Normal. No adnexal masses. Free fluid: No significant free fluid. IMPRESSION: 1. No intrauterine gestation. DDX: Early IUP, missed , ectopic . 2. RIGHT ovarian cyst.
== END 2017-07-14 22:36 | disposition left against medical advice (07) ==
LOC: ED 20:05
DX: R10.9 Unspecified abdominal pain (principal)

== ENCOUNTER 2017-10-05 17:26 | Emergency (ER) | payer MEDICAID ==
[2017-10-05 17:40] VITALS: BMI 33.0
[2017-10-05 17:42] VITALS: RESP 17; O2SAT 98
--- NOTE | 2017-10-05 18:36 | ED PDOC ---
Arrival/HPI - General Chief Complaint: Abdominal Pain Time Seen by Provider: 10/05/17 17:49 Historian: Patient - History of Present Illness Narrative History of Present Illness (Text): 10/05/17 18:33 27yo female with pmhx of Asthma who present with complaint of intermittent suprapubic abdominal pain x one week. She denies fever, chills, back pain, nausea, vomiting, diarrhea, constipation, vaginal discharge, any other complaint. Past Medical History - Provider Review Nursing Documentation Reviewed: Yes - Infectious Disease Hx of Infectious Diseases: None - Cardiac Hx Cardiac Disorders: No - Pulmonary Hx Respiratory Disorders: Yes Hx Asthma: Yes - Neurological Hx Neurological Disorder: Yes Hx Seizures: Yes - HEENT Hx HEENT Disorder: No - Renal Hx Renal Disorder: No - Endocrine/Metabolic Hx Endocrine Disorders: No - Hematological/Oncological Hx Blood Disorders: No - Integumentary Hx Dermatological Disorder: No - Musculoskeletal/Rheumatological Hx Musculoskeletal Disorders: No - Gastrointestinal Hx Gastrointestinal Disorders: No - Genitourinary/Gynecological Hx Genitourinary Disorders: No - Psychiatric Hx Psychophysiologic Disorder: No Hx Substance Use: No - Anesthesia Hx Anesthesia: No Hx Anesthesia Reactions: No Hx Malignant Hyperthermia: No Family/Social History - Physician Review Nursing Documentation Reviewed: Yes Family/Social History: Unknown Family HX Smoking Status: Light Smoker < 10 Cigarettes Daily Hx Alcohol Use: No Hx Substance Use: No Allergies/Home Meds Allergies/Adverse Reactions: Allergies banana Allergy (Verified 10/05/17 17:40) SWELLING eggplant Allergy (Uncoded 10/05/17 17:40) SWELLING Home Medications: Home Meds Medication Instructions Recorded Confirmed lamoTRIgine [LaMICtal] 200 mg PO BID 11/26/16 10/05/17 Review of Systems - Physician Review All systems were reviewed & negative as marked: Yes - Review of Systems Constitutional: Normal Eyes: Normal ENT: Normal Respiratory: Normal Cardiovascular: Normal Gastrointestinal: Abdominal Pain. absent: Constipation, Diarrhea, Nausea, Vomiting, Hematochezia, Hematemesis Genitourinary Female: Normal Musculoskeletal: Normal Skin: Normal Neurological: Normal Endocrine: Normal Hemo/Lymphatic: Normal Psychiatric: Normal Physical Exam Vital Signs Reviewed: Yes Vital Signs Temp Pulse Resp BP Pulse Ox 10/05/17 17:42 99.1 F 85 17 107/73 98 10/05/17 17:40 99.1 F 85 17 107/73 98 Temperature: Afebrile Blood Pressure: Normal Pulse: Regular Respiratory Rate: Normal Appearance: Positive for: Well-Appearing, Non-Toxic, Comfortable Pain Distress: None Mental Status: Positive for: Alert and Oriented X 3 - Systems Exam Head: Present: Atraumatic, Normocephalic Pupils: Present: PERRL Extroacular Muscles: Present: EOMI Conjunctiva: Present: Normal Mouth: Present: Moist Mucous Membranes Neck: Present: Normal Range of Motion Respiratory/Chest: Present: Clear to Auscultation, Good Air Exchange. No: Respiratory Distress, Accessory Muscle Use Cardiovascular: Present: Regular Rate and Rhythm, Normal S1, S2. No: Murmurs Abdomen: Present: Tenderness (Suprapubic tenderness), Other (Soft). No: Distention, Peritoneal Signs, Rebound, Guarding, McBurney's Point Tender, Rovsing's Sign Present Genitourinary/Pelvic Exam: No: Vaginal Discharge, Adenexal Tenderness, Cervical Motion Tendernes Back: Present: Normal Inspection Upper Extremity: Present: Normal Inspection. No: Cyanosis, Edema Lower Extremity: Present: Normal Inspection. No: Edema Neurological: Present: GCS=15, CN II-XII Intact, Speech Normal Skin: Present: Warm, Dry, Normal Color. No: Rashes Psychiatric: Present: Alert, Oriented x 3, Normal Insight, Normal Concentration Medical Decision Making ED Course and Treatment: 10/05/17 20:36 PT in ED for stated history. She was comfortable and in no distress in ED. Noted eating snacks in ED UA was negative PT was offered pelvic US and she denied, stated that she have a ASSISTANT LIBRARIAN and will f/ u with her ASSISTANT LIBRARIAN. She was DC home with ibuprofen. - Lab Interpretations Lab Results: Lab Results 10/05/17 18:55: Urine Color Light yellow, Urine Appearance Clear, Urine pH 6.5, Ur Specific [place] 1.020, Urine Protein Negative, Urine Glucose (UA) Negative, Urine Ketones Negative, Urine Blood Negative, Urine Nitrate Negative, Urine Bilirubin Negative, Urine Urobilinogen 0.2, Ur Leukocyte Esterase Negative - Medication Orders Current Medication Orders: Discontinued Medications Ibuprofen (Motrin Tab) 600 mg PO STAT STA Stop: 10/05/17 19:44 Last Admin: 10/05/17 19:59 Dose: 600 mg MAR Pain/Vitals Document 10/05/17 19:59 JENNA (Rec: 10/05/17 20:00 JENNA [id number]) Pain Reassessment Is This A Pain ReAssessment? No Sleep Is patient sleeping during reassessment? No Presence of Pain Presence of Pain Yes Pain Scale Used Pain Scale Used Numeric Location Upper or Lower Lower Pain Location Body Site Abdomen Intensity 6 Scale Used Numeric Disposition/Present on Arrival - Present on Arrival Any Indicators Present on Arrival: No History of DVT/PE: No History of Uncontrolled Diabetes: No Urinary Catheter: No History of Decub. Ulcer: No History Surgical Site Infection Following: None - Disposition Have Diagnosis and Disposition been Completed?: Yes Diagnosis: Pelvic pain Disposition: HOME/ ROUTINE Disposition Time: 19:45 Patient Plan: Discharge Patient Problems: Current Active Problems Problem Status Onset Pelvic pain Acute Condition: STABLE Discharge Instructions (ExitCare): Acute Pelvic Pain (DC) Additional Instructions: Follow up with your ASSISTANT LIBRARIAN Return to ED for any new or worsening symptoms Prescriptions: Ibuprofen [Motrin Tab] 600 mg PO Q6 #15 tab [facility] - Follow up with primary Forms: [employer] (Tajik)
[2017-10-05 19:21] LABS: PH,URINE 6.5 (4.7-8.0); URINE BILIRUBIN NEGATIVE (NEGATIVE); URINE BLOOD NEGATIVE (NEGATIVE); URINE GLUCOSE (UA) NEGATIVE (NEGATIVE); URINE LEUKOCYTE ESTERASE NEGATIVE Leu/uL (NEGATIVE); URINE PROTEIN NEGATIVE mg/dL (<30 mg/dL); URINE UROBILINOGEN 0.2 E.U./dL (<1 E.U./dL)
[2017-10-05 19:23] LABS: URINE APPEARANCE CLEAR (CLEAR); URINE COLOR LIGHT YELLOW (YELLOW)
[2017-10-06 00:48] VITALS: BP 110/70; PULSE 82; TEMP 98.2
== END 2017-10-05 19:55 | disposition home or self-care (01) ==
LOC: ED 17:26
DX: R10.2 Pelvic and perineal pain (principal); F17.210 Nicotine dependence, cigarettes, uncomplicated; J45.909 Unspecified asthma, uncomplicated